=== PATIENT | male | born 1950 | race Caucasian/White ===

== ENCOUNTER 2016-05-13 05:57 | Observation (INO) | payer MEDICARE, OTHER ==
[2016-05-13] VITALS (11 sets, daily range): BP systolic 102–165; BP diastolic 45–90; PULSE 59–97; TEMP 97.3–98.5
[~2016-05-13] VITALS: Ht 175.3 cm; Wt 69.1 kg
[~2016-05-13 05:57] MED LIST: BENICAR 20MG TA20 MG PO; FLOMAX 0.40.4 MG/CAP PO; IBUPROFEN 200200 MG PO; PERCOCET 325 MG1 TA2 PO; ZANTAC 7575 MG PO
[2016-05-13] MEDS ORDERED: CIPRO 500MG TA500 MG PO (07:37)
[2016-05-13] MEDS ORDERED: MICARDIS HCT 121 TAB PO (07:38)
[2016-05-13 07:52] LABS: CALCIUM 9.4 mg/dL (8.4-10.2); CREATININE, serum 2.99 mg/dL (0.66-1.25); POTASSIUM 3.5 mmol/L (3.4-5.0)
[2016-05-14 02:11] VITALS: BP 148/66; PULSE 56; TEMP 98
[2016-05-14 05:28] VITALS: BP 147/74; PULSE 102; TEMP 98.3
[2016-05-14 09:54] VITALS: BP 118/74; PULSE 72; TEMP 97.5
[2016-05-14 14:11] VITALS: BP 123/72; PULSE 63; TEMP 97.1
[2016-05-14 17:13] VITALS: BP 136/64; PULSE 58; TEMP 98.1
[2016-05-14 21:31] VITALS: BP 118/56; PULSE 85; TEMP 98.2
[2016-05-15 04:35] VITALS: BP 133/59; PULSE 77; TEMP 97.2
[2016-05-15 10:12] VITALS: BP 126/68; PULSE 64; TEMP 98.2
[2016-05-15 14:16] VITALS: BP 153/59; PULSE 59; TEMP 98.2
[2016-05-15 17:45] VITALS: BP 125/90; PULSE 60; TEMP 98
== END 2016-05-15 19:32 | disposition home or self-care (01) ==
LOC: SDCO 05:57 → SURG 11:45 → SDCO 05-15 09:47 → SURG 05-15 09:48
PROVIDERS: Nurse Anesthetist, Certified Registered
DX: N40.1 Benign prostatic hyperplasia with lower urinary tract symptoms (principal); R39.14 Feeling of incomplete bladder emptying; R39.12 Poor urinary stream; N43.3 Hydrocele, unspecified; N43.40 Spermatocele of epididymis, unspecified; B19.20 Unspecified viral hepatitis C without hepatic coma
CPT/HCPCS: OP; G0378; J0690; J1100; J1170; J2270; J2704; J3010; J7120

== ENCOUNTER 2018-02-28 13:42 | Day surgery (SDC) | payer MEDICARE ==
[~2018-02-28] VITALS: Ht 175.3 cm; Wt 62.8 kg
[~2018-02-28 13:42] MED LIST changes: +CIPRO 500MG TA500 MG PO; +MICARDIS HCT 121 TAB PO
[2018-02-28 14:15] VITALS: BP 143/88; PULSE 82; TEMP 97.7
[2018-02-28 16:15] VITALS: BP 147/91; PULSE 68; TEMP 97.8
--- NOTE | 2018-02-28 16:15 | NUR ---
PATIENT BACK FROM ENDO SUITE. AMBULATED WITH MIN ASSIST TO CHAIR. SON HAS STEP OUT FOR THE MOMENT. VS APPEAR STABLE. PATIENT ALERT AND ORIENTED, TALKATIVE. WILL CONTINUE TO MONITOR. WILL GET PATIENT FOOD AND DRINK
[2018-02-28 16:30] VITALS: BP 136/87; PULSE 74
--- NOTE | 2018-02-28 16:30 | NUR ---
SON AT BEDSIDE. PATIENT CHATTING WITH SON. NO COMPLAINTS OF PAIN OR N/V. VS APPEAR STABLE. WILL CONTINUE TO MONITOR.
[2018-02-28 16:45] VITALS: BP 142/103; PULSE 72
--- NOTE | 2018-02-28 16:45 | NUR ---
PATIENT READY TO LEAVE, DR WITH PATIENT NOW. WILL DISCHARGE PATIENT WHEN DR IS DONE. VS APPEAR STABLE.
== END 2018-02-28 16:58 | disposition home or self-care (01) ==
LOC: SDCO 13:42
DX: T18.2XXA Foreign body in stomach, initial encounter (principal); K31.6 Fistula of stomach and duodenum; I25.2 Old myocardial infarction; I10 Essential (primary) hypertension; F17.210 Nicotine dependence, cigarettes, uncomplicated; I25.10 Atherosclerotic heart disease of native coronary artery without angina pectoris; Z86.19 Personal history of other infectious and parasitic diseases
CPT/HCPCS: J2704; J7030